=== PATIENT | female | born 1985 | race Caucasian/White ===

== ENCOUNTER 2020-04-05 22:57 | Emergency (ER) | payer MEDICAID, SELFPAY ==
[2020-04-05 23:01] VITALS: BP 110/78; PULSE 61; RESP 16; TEMP 36.1; O2SAT 100; BMI 19.5
[2020-04-05 23:24] VITALS: BP 112/71; PULSE 54; RESP 18; TEMP 36.4
--- NOTE | 2020-04-05 23:42 | ED_ITS ---
HPI - Dental/Oral General Chief complaint: Dental/Oral Stated complaint: DENTAL PAIN Time Seen by Provider: 04/05/20 23:35 Source: patient Mode of arrival: ambulatory Limitations: no limitations History of Present Illness HPI Narrative: 34-year-old female without significant past medical history presents today with dental pain. She reports that she has 9/10 pain located in her left lower jaw. She reports that she fractured tooth about 2 weeks ago. She has been taking Aleve, acetaminophen with no relief in her pain. She states that eating makes the pain worse. She states that The pain is stabbing in natu re. The pain does not radiate. she denies any fevers or chills. She denies any swollen lymph nodes. She denies any difficulty swallowing or throat swelling. She denies any other systemic complaints. She has called her dentist, she will be seen on April 19. Teeth map: 1. Fractured tooth Related Data Previous Rx's Medication Instructions Recorded oxycodone-acetaminophen [Percocet] 1 tab PO Q6H PRN 3 Days #12 tab 04/05/20 penicillin V potassium 500 mg PO QID 7 Days #28 tab 04/05/20 Allergies Allergy/AdvReac Type Severity Reaction Status Date / Time No Known Allergies Allergy Unverified 03/22/20 18:27 Review of Systems Review of Systems: Yes all other systems are reviewed and are negative Constitutional: Constitutional: Denies chills, Denies fever(s) and Denies weakness Eyes: Eyes: Denies blurry vision, Denies change in vision and Denies itchy eyes ENT: Denies dry mouth, Denies epistaxis and Denies neck pain Cardiovascular: Cardiovascular: Denies chest pain, Denies Epigastric Pain, Denies palpitations and Denies dyspnea Respiratory: Respiratory: Denies cough and Denies dyspnea Gastrointestinal: Gastrointestinal: Denies constipation, Denies diarrhea, Denies nausea and Denies vomiting Genitourinary: Genitourinary: Denies urinary frequency and Denies urinary urgency Musculoskeletal: Musculoskeletal: Denies back pain, Denies arthralgias, Denies neck pain, Denies numbness and Denies tingling Integumentary/Breasts: Skin/Breast: Denies lesions and Denies rash Neurologic: Denies confusion, Denies numbness, Denies tingling and Denies weakness Psychiatric: Psychiatric: Denies anxiety, Denies confusion and Denies depression Endocrine: Endocrine: Denies polydipsia and Denies palpitations Hematologic/Lymphatic: Hematologic/Lymphatic: Denies easy bleeding and Denies easy bruising Allergic/Immunologic: Allergic/Immunologic: Denies urticaria and Denies itchy eyes [facility] Past Medical History [facility] Narrative: noncontributory Source: old records reviewed Medical History No known health problems Social History Social History Advance Directives: No Advance Directives Information Provided: No Physical Exam Vital Signs and I&O and Narrative: Vital Signs and I&O: Vital Signs Temp 97.6 F 04/05/20 23:24 Pulse 54 04/05/20 23:24 Resp 18 04/05/20 23:24 BP 112/71 04/05/20 23:24 Pulse Ox 100 04/05/20 23:01 Intake & Output 04/05/20 04/05/20 04/06/20 06:59 18:59 06:59 Weight 51.71 kg Body Mass Index 19.5 Const: General: cooperative, no acute distress, alert and awake; No confusion Orientation/consciousness: oriented to place, oriented to time, patient oriented x3 and No confusion HENMT: Head: Yes normal to inspection, Yes normocephalic and Yes atraumatic Ears: hearing grossly normal bilaterally and external ears normal General nose exam: Normal external nose present Mouth: Normal oral and palatal mucosa present Teeth and gingiva: abnormal dentition Teeth image: 1. tooth 18 has a fracture through it. There is exposed dentin. Throat: Yes posterior oropharynx normal and Yes tonsils normal Eyes: General: appearance normal, both eyes and all related structures Conjunctivae: conjunctivae normal Sclerae: sclerae normal Corneas: corneas normal EOM: EOMs intact bilaterally Neck: Neck: Yes normal visual inspection, Yes full ROM, Yes no lymphadenopathy, Yes trachea midline and Yes supple Resp: Effort & Inspection: normal respiratory effort, no tracheal deviation, no use of accessory muscles and No prolonged expiratory phase Auscultation: clear to auscultation bilaterally Cardio: Jugular venous distension: no JVD Palpation: normal PMI Rate: regular rate Rhythm: regular rhythm Heart sounds: S1 normal heart sound present and S2 normal heart sound present GI: Inspection: Yes normal to inspection Palpation (GI): Soft to palpation and nontender Skin: General skin exam: no rashes or lesions noted Neuro: General: oriented to place, oriented to time, patient oriented x3 and No confusion Extrem: General: Yes normal to inspection and Yes full ROM Psych: Appearance: grossly normal Mental Status: mental status grossly normal MDM - Dental/Oral MDM Narrative Medical decision making narrative: 34-year-old female presents today with a fractured tooth at tooth 18. That she has been dealing with for about 2 weeks. Her pain is not relieved with acetaminophen and Tylenol. There is an obvious fracture of tooth 18, With palpation of the apical surface of this. Differential includes fracture tooth versus dental abscess. There are no signs of deep space soft tissue infection. There are no signs of retropharyngeal abscess, peritonsillar abscess. She was given oxycodone given that she has not had relief with NSAIDs and acetaminophen at home. She is placed on penicillin for possible abscess. The patient was provided with discharge instructions and return precautions which she acknowledged. Differential Diagnosis Differential diagnosis: Likely dental caries, dental abscess and fracture of tooth Medical Records Attestation: I reviewed the patient's medical records. Lab Data Attestation: I reviewed the patient's lab results. Discharge Plan Discharge Clinical Impression: Fracture of tooth Qualifiers: Encounter type: initial encounter Fracture type: closed Qualified Code(s): S02.5XXA - Fracture of tooth (traumatic), initial encounter for closed fracture Patient Disposition: Home, Self-Care Instructions: Toothache (ED) Additional Instructions: Use 600 mg of ibuprofen every 8 hours for your pain, and the oxycodone- acetaminophen for breakthrough pain only. Do not drive if taking the oxycodone- acetaminophen. Take the antibiotic as prescribed. Please call your dentist tomorrow to see if you can get an earlier appointment. If you develop any new or concerning symptoms please return to the emergency department. Prescriptions: New oxycodone-acetaminophen [Percocet] 5-325 mg tablet 1 tab PO Q6H PRN (Reason: pain) 3 Days Qty: 12 RF: 0 penicillin V potassium 500 mg tablet 500 mg PO QID 7 Days Qty: 28 RF: 0
[2020-04-05] MEDS: oxyCODONE HCl Immed Release 5 MG TABLET PO (23:58)
[2020-04-05] MEDS: Penicillin V Potassium 250 MG TABLET 500 MG PO (23:59)
== END 2020-04-06 00:09 | disposition home or self-care (01) ==
LOC: HO.ED 23:50
PROVIDERS: Emergency Provider Emergency Medicine; PCP Family Medicine
DX: S02.5XXA Fracture of tooth (traumatic), initial encounter for closed fracture (principal); X58.XXXA Exposure to other specified factors, initial encounter; Y93.9 Activity, unspecified; Y92.9 Unspecified place or not applicable; Y99.9 Unspecified external cause status
CPT/HCPCS: 99283

== ENCOUNTER 2020-04-22 18:46 | Emergency (ER) | payer MEDICAID, SELFPAY ==
[2020-04-22 19:24] VITALS: BP 98/41; PULSE 71; RESP 16; TEMP 36.9; O2SAT 100; BMI 19.0
[2020-04-22] MEDS: oxyCODONE HCl Immed Release 5 MG TABLET PO (19:53)
--- NOTE | 2020-04-22 19:57 | ED_ITS ---
HPI - Dental/Oral General Chief complaint: Dental/Oral <SHAWNA Barriga Last Filed: 04/22/20 20:24> Stated complaint: Dental Pain <SHAWNA Barriga Last Filed: 04/22/20 20:24> Time Seen by Provider: 04/22/20 19:22 <SHAWNA Barriga Last Filed: 04/22/20 20:24> Source: patient <SHAWNA Barriga Last Filed: 04/22/20 20:24> Mode of arrival: ambulatory <SHAWNA Barriga Last Filed: 04/22/20 20:24> History of Present Illness HPI Narrative: 35-year-old female presenting to ED complaining of left lower dental pain times a few days due to broken tooth. Admits was recently evaluated in the ED for similar symptoms, prescribed antibiotic and pain medication with improvement in symptoms. Reports pain radiates to left ear /jaw. Denies fever, chills, drainage from ear, hearing, oral swelling, inability to eat/tolerate p.o. <SHAWNA Barriga Last Filed: 04/22/20 20:24> Related Data Home medications: Previous Rx's Medication Instructions Recorded oxycodone-acetaminophen [Percocet] 1 tab PO Q6H PRN 3 Days #12 tab 04/05/20 penicillin V potassium 500 mg PO QID 7 Days #28 tab 04/05/20 oxycodone-acetaminophen [Percocet] 1 tab PO Q8H PRN 3 Days #10 tab 04/06/20 acetaminophen-codeine 1 tab PO Q8H PRN 3 Days #9 tab 04/22/20 <SHAWNA Barriga Last Filed: 04/22/20 20:24> Allergies/adverse reactions: Allergies Allergy/AdvReac Type Severity Reaction Status Date / Time No Known Allergies Allergy Unverified 03/22/20 18:27 <SHAWNA Barriga Last Filed: 04/22/20 20:24> Review of Systems Review of Systems: Constitutional: No Weight loss, No Fever, No Chills ENT/Mouth: +dental pain, +L Ear Pain, No Nasal Congestion, No Sinus Pain, No Hoarseness, No sore throat, No Swallowing Difficulty Skin: No Skin Lesions, No rash <SHAWNA Barriga Last Filed: 04/22/20 20:24> Yes all other systems are reviewed and are negative <SHAWNA Barriga - Last Filed: 04/22/20 20:24> [facility] Past Medical History Attestation statement: The following information was validated with the patient. <SHAWNA Barriga - Last Filed: 04/22/20 20:24> Medical History: Medical History No known health problems <SHAWNA Barriga - Last Filed: 04/22/20 20:24> Social History Social History: Social History Advance Directives: No <SHAWNA Barriga - Last Filed: 04/22/20 20:24> Physical Exam Vital Signs: Vital Signs: Vital Signs Temp Pulse Resp BP Pulse Ox 04/22/20 20:20 57 16 101/67 04/22/20 19:24 98.5 F 71 16 98/41 L 100 Body Mass Index 19.0 <SHAWNA Barriga - Last Filed: 04/22/20 20:24> Vital Signs: Vital Signs Temp Pulse Resp BP Pulse Ox 04/22/20 20:20 57 16 101/67 04/22/20 19:24 98.5 F 71 16 98/41 L 100 Body Mass Index 19.0 <Cheryl Nunes MD - Last Filed: 04/23/20 02:16> Const: General: cooperative and healthy appearing <SHAWNA Barriga - Last Filed: 04/22/20 20:24> Orientation/consciousness: patient oriented x3 <SHAWNA Barriga - Last Filed: 04/22/20 20:24> Limitations: no limitations <SHAWNA Barriga - Last Filed: 04/22/20 20:24> HENMT: Other: diffuse dental caries. L lower molar broken, no visible pulp, no surrounding erythema /inflammation, fluctuance or induration. <SHAWNA Barriga - Last Filed: 04/22/20 20:24> Head: Yes normal to inspection <SHAWNA Barriga - Last Filed: 04/22/20 20:24> Ears: hearing grossly normal bilaterally, external ears normal and TM's normal bilaterally <SHAWNA Barriga - Last Filed: 04/22/20 20:24> General nose exam: Normal external nose present and Normal nares present <SHAWNA Barriga - Last Filed: 04/22/20 20:24> Face and sinus: Yes normal facial exam <SHAWNA Barriga - Last Filed: 04/22/20 20:24> Mouth: Normal oral and palatal mucosa present <SHAWNA Barriga - Last Filed : 04/22/20 20:24> Teeth and gingiva: caries <Keila Ruiz [place] - Last Filed: 04/22/20 20:24> Throat: Yes uvula midline <SHAWNA Barriga - Last Filed: 04/22/20 20:24> Eyes: General: appearance normal, both eyes and all related structures <SHAWNA Barriga - Last Filed: 04/22/20 20:24> EOM: EOMs intact bilaterally <SHAWNA Barriga - Last Filed: 04/22/20 20:24> Neck: Neck: Yes normal visual inspection, Yes no lymphadenopathy and Yes no meningeal signs <SHAWNA Barriga - Last Filed: 04/22/20 20:24> Resp: Effort & Inspection: normal respiratory effort <SHAWNA Barriga - Last Filed: 04/22/20 20:24> Cardio: Rate: regular rate <SHAWNA Barriga - Last Filed: 04/22/20 20:24> Skin: Rashes: no rashes <SHAWNA Barriga - Last Filed: 04/22/20 20:24> Wounds: no wounds <Keila Ruiz [place] - Last Filed: 04/22/20 20:24> Neuro: General: patient oriented x3 and no meningeal signs <SHAWNA Barriga - Last Filed: 04/22/20 20:24> Gait exam (Neuro): Normal gait present <SHAWNA Barriga - Last Filed: 04/22/20 20:24> Extrem: General: Yes normal to inspection <SHAWNA Barriga - Last Filed: 04/22/20 20:24> MDM - Dental/Oral MDM Narrative Medical decision making narrative: Likely acute on chronic dental pain. Low concern for dental abscess/ intraoral infection at this time. Exam not consistent with [employer] <SHAWNA Barriga Last Filed: 04/22/20 20:24> Differential Diagnosis Differential diagnosis: Likely dental caries, toothache and fracture of tooth <SHAWNA Barriga Last Filed: 04/22/20 20:24> Discharge Plan Discharge Clinical Impression: Toothache, Dental caries <SHAWNA Barriga Last Filed: 04/22/20 20:24> Patient Disposition: Home, Self-Care <SHAWNA Barriga Last Filed: 04/22/20 20:24> Instructions: Mouth Care (ED) <SHAWNA Barriga Last Filed: 04/22/20 20:24> Additional Instructions: Tylenol No. 3 is an opiate pain medication, take only when pain is severe for the next 3 days In addition you should be taking ibuprofen at home Apply heat or ice to area You need to follow-up with a dentist <SHAWNA Barriga Last Filed: 04/22/20 20:24> Prescriptions: New acetaminophen-codeine 300-30 mg tablet 1 tab PO Q8H PRN (Reason: pain) 3 Days Qty: 9 RF: 0 No Action oxycodone-acetaminophen [Percocet] 5-325 mg tablet 1 tab PO Q6H PRN (Reason: pain) 3 Days Qty: 12 RF: 0 penicillin V potassium 500 mg tablet 500 mg PO QID 7 Days Qty: 28 RF: 0 oxycodone-acetaminophen [Percocet] 5-325 mg tablet 1 tab PO Q8H PRN (Reason: Acute pain) 3 Days Qty: 10 RF: 0 <SHAWNA Barriga Last Filed: 04/22/20 20:24> Referrals: Arik Robles DMD [Dentist] - 2 days Hamlet Simpson DMD [Physician] - 2 days <SHAWNA Barriga Last Filed: 04/22/20 20:24> Interventions: ED Discharge Assessment Last Done: 04/22/20 20:24 <SHAWNA Barriga Last Filed: 04/22/20 20:24> Discharge Date/Time: 04/22/20 20:30 <SHAWNA Barriga Last Filed: 04/22/20 20:24> Print Language: German <SHAWNA Barriga - Last Filed: 04/22/20 20:24>
[2020-04-22 20:20] VITALS: BP 101/67; PULSE 57; RESP 16
== END 2020-04-22 20:30 | disposition home or self-care (01) ==
PROVIDERS: Emergency Provider Emergency Medicine; PCP Family Medicine
DX: K02.9 Dental caries, unspecified (principal); K08.89 Other specified disorders of teeth and supporting structures
CPT/HCPCS: 99283; 99284

== ENCOUNTER 2020-10-09 23:08 | Emergency (ER) | payer MEDICAID, SELFPAY ==
[2020-10-09 23:24] VITALS: BP 97/61; PULSE 66; RESP 16; TEMP 36.8; O2SAT 100; BMI 19.8
[2020-10-09 23:53] VITALS: BP 98/60; PULSE 60; RESP 16; TEMP 36.9; O2SAT 97
--- NOTE | 2020-10-10 | ED_ITS ---
HPI - Anxiety General Chief Complaint: Anxiety Stated Complaint: NAUSEA/VOMITING Time Seen by Provider: 10/10/20 00:00 Source: patient Mode of arrival: ambulatory Limitations: no limitations History of Present Illness HPI narrative: Patient had 3- 4 times diarrhea yesterday and today she been feeling nauseated with slight epigastric pain feel little anxious otherwise feels comfortable complaint: anxiety Related Data Previous Rx's Medication Instructions Recorded oxycodone-acetaminophen [Percocet] 1 tab PO Q6H PRN 3 Days #12 tab 04/05/20 penicillin V potassium 500 mg PO QID 7 Days #28 tab 04/05/20 oxycodone-acetaminophen [Percocet] 1 tab PO Q8H PRN 3 Days #10 tab 04/06/20 acetaminophen-codeine 1 tab PO Q8H PRN 3 Days #9 tab 04/22/20 ondansetron 4 mg PO Q6-8H PRN #7 tab 10/10/20 Allergies Allergy/AdvReac Type Severity Reaction Status Date / Time No Known Allergies Allergy Unverified 03/22/20 18:27 Review of Systems Review of Systems: Constitutional : No Weight loss, No Fever, No Chills ENT/Mouth : No sore throat, No Rhinorrhea Eyes: No Eye Pain, No Swelling Cardiovascular : No Chest Pain, no palpitations Respiratory : No Cough, No Sputum, no shortness of breath Gastrointestinal :+ Nausea, No Vomiting, No Diarrhea, No abdominal Pain, no black stools Genitourinary : No Dysuria, No Urinary Frequency Musculoskeletal : No joint pain, No Myalgias, No Joint Swelling Skin : No Skin Lesions, No rash Neuro : No Weakness, No Numbness, No Dizziness, No Headache Psych : + Anxiety, No Depression Heme/Lymph: No Bruising, No Lymphadenopathy Endocrine : No Polyuria, No Polydipsia All other systems reviewed and are negative [facility] Past Medical History Medical History No known health problems Social History Social History Smoking Status: Light tobacco smoker Use of substances other than those prescribed or required for medical reasons: No Advance Directives: No Advance Directives Information Provided: No Physical Exam Vital Signs: Vital Signs: Last Vital Signs Temp 98.4 F 10/09/20 23:53 Pulse 60 10/09/20 23:53 Resp 16 10/09/20 23:53 BP 98/60 10/09/20 23:53 Pulse Ox 97 10/09/20 23:53 Body Mass Index 19.8 Appearance: Alert. Oriented X3. No acute distress. Eyes: Pupils equal, round and reactive to light. ENT: Pharynx normal. Neck: Normal inspection. Neck supple. CVS: Normal heart rate and rhythm. Pulses normal. Respiratory: No respiratory distress. Breath sounds normal. Abdomen: Soft mild epigastric tenderness no right upper quadrant tenderness. Bowel sounds are present, no mass palpable, no CVA tenderness Skin: Skin warm and dry. Normal skin color. Normal skin turgor. Extremities: No lower extremity edema. Neuro: Oriented X 3. No motor deficit. No sensory deficit. MDM - Anxiety MDM Narrative Medical decision making narrative: Patient with likely viral gastroenteritis had only nausea no vomiting today will give her Zofran urine is negative for any UTI or Lab Data Attestation: I reviewed the patient's lab results. Labs: Lab Results 10/10/20 10/10/20 Range/Units 00:31 00:31 Urine Color YELLOW Urine Appearance CLEAR Urine pH 6.0 (5.0-8.0) Ur Specific [place] 1.010 (1.005-1.025) Urine Protein NEG (NEG-TRACE) MG/DL Urine Glucose (UA) NEG (NEG) MG/DL Urine Ketones NEG (NEG) MG/DL Urine Blood NEG (NEG) Urine Nitrite NEG (NEG) Ur Leukocyte Esterase NEG (NEG) Urine Test NEGATIVE (NEGATIVE) Discharge Plan Discharge Clinical Impression: Nausea & vomiting Qualifiers: Vomiting type: unspecified Vomiting Intractability: non-intractable Qualified Code(s): R11.2 - Nausea with vomiting, unspecified Patient Disposition: Home, Self-Care Instructions: Gastroenteritis (ED) Additional Instructions: Drink plenty of fluids Takes medicine for nausea as advised. Follow-up follow with PCP Prescriptions: New ondansetron 4 mg tablet,disintegrating 4 mg PO Q6-8H PRN (Reason: nausea and vomiting) Qty: 7 RF: 0 No Action oxycodone-acetaminophen [Percocet] 5-325 mg tablet 1 tab PO Q6H PRN (Reason: pain) 3 Days Qty: 12 RF: 0 penicillin V potassium 500 mg tablet 500 mg PO QID 7 Days Qty: 28 RF: 0 oxycodone-acetaminophen [Percocet] 5-325 mg tablet 1 tab PO Q8H PRN (Reason: Acute pain) 3 Days Qty: 10 RF: 0 acetaminophen-codeine 300-30 mg tablet 1 tab PO Q8H PRN (Reason: pain) 3 Days Qty: 9 RF: 0
[2020-10-10 00:40] LABS: Glucose Urine UA NEG (NEG); Leukocyte Esterase Urine NEG (NEG); Nitrite Urine NEG (NEG); Urine Blood NEG (NEG); Urine Ketones NEG (NEG); Urine Protein NEG (NEG-TRACE)
[2020-10-10 00:41] LABS: Appearance Urine CLEAR; Color Urine YELLOW; UPreg QC Valid YES; Urine Pregnancy NEGATIVE (NEGATIVE)
== END 2020-10-10 01:05 | disposition home or self-care (01) ==
PROVIDERS: Emergency Provider Internal Medicine; PCP Family Medicine
DX: R11.2 Nausea with vomiting, unspecified (principal); R10.13 Epigastric pain; F17.200 Nicotine dependence, unspecified, uncomplicated; Z71.6 Tobacco abuse counseling; Z79.899 Other long term (current) drug therapy
CPT/HCPCS: 81003; 81025; 99283; 99284

== ENCOUNTER 2021-02-24 07:42 | Emergency (ER) | payer MEDICAID, SELFPAY ==
--- NOTE | ~2021-02-24 | CT_ITS ---
EXAMINATION: CT FACIAL BONES WITHOUT CONTRAST CLINICAL INFORMATION: Injury to eye COMPARISON: None TECHNIQUE: Multidetector CT scan of the facial bones with multiplanar reconstructions This CT examination was performed using dose optimization techniques as appropriate, variously including the following: *Automated exposure control *Adjustment of mA and/or kV according to patient size (this includes techniques or standardized protocols for targeted exams where dose is matched to indication/reason for exam; i.e. extremities or head) *Use of iterative reconstruction technique DLP: 20 9 mGy-cm FINDINGS: Soft tissue swelling overlying the left orbit with mild preseptal swelling. No lens dislocation or orbital disruption. No overlying bony abnormality. There is no acute maxillofacial fracture. The pterygoid plates are intact. The zygomatic arches are intact. The lamina papyracea are intact. The orbital rims are intact. The paranasal sinuses are notable for polypoid or retention cyst right maxillary sinus. No air-fluid levels are seen. There is no significant deviation of the nasal septum. The ostiomeatal complexes are clear. The lamina papyracea are intact. The ethmoid roofs are symmetric. The carotid canals are normally covered by bone. No maxillary periapical disease is seen. The mastoid air cells and visualized middle ear cavities are well-aerated. The orbits are normal. The TMJs are unremarkable. The imaged portions of the brain demonstrate no acute abnormality. CT/CT facial bones wo con IMPRESSION: No acute intracranial process or discrete facial bone fracture. No orbital floor or medial orbital wall fracture.
[2021-02-24 07:51] VITALS: BP 124/81; PULSE 70; RESP 14; TEMP 36.1; O2SAT 100; BMI 17.4
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
--- NOTE | 2021-02-24 08:11 | PC.NURSE ---
PT A/O X3 NO SOB/BEBE NOTED, L EYE SWOLLEN PURPLE DISCOLORATITON NOTED. SPEAKS IN FULL SENTENCES. AWARE.
== END 2021-02-24 09:48 | disposition home or self-care (01) ==
PROVIDERS: Emergency Provider Emergency Medicine; PCP Family Medicine
DX: S00.12XA Contusion of left eyelid and periocular area, initial encounter (principal); G44.309 Post-traumatic headache, unspecified, not intractable; Y04.8XXA Assault by other bodily force, initial encounter; Y93.9 Activity, unspecified; Y92.9 Unspecified place or not applicable; Y99.9 Unspecified external cause status; F17.200 Nicotine dependence, unspecified, uncomplicated; Z71.6 Tobacco abuse counseling; Z79.899 Other long term (current) drug therapy
CPT/HCPCS: 70486; 99283

== ENCOUNTER 2022-05-30 10:55 | Emergency (ER) | payer MEDICAID, SELFPAY ==
[2022-05-30 11:31] VITALS: BP 92/63; PULSE 89; RESP 18; TEMP 37.3; O2SAT 95; BMI 19.7
--- NOTE | 2022-05-30 11:31 | ED_ITS ---
HPI - URI/Sore Throat General Chief Complaint: Headache <Shameka Diamond CNP - Last Filed: 05/30/22 11:36> Stated Complaint: body aches, fever <Shameka Diamond CNP - Last Filed: 05/30/22 11:36> Time Seen by Provider: 05/30/22 11:54 <Shameka Diamond CNP - Last Filed: 05/30/22 11:36> Source: patient <Amanda Doshi NP - Last Filed: 05/30/22 16:08> Mode of arrival: ambulatory <LISA Paige Last Filed: 05/30/22 16:08> Limitations: no limitations <Amanda Doshi NP - Last Filed: 05/30/22 16:08> History of Present Illness HPI Narrative: Stephany is a 37 yo female with a PMHx of depression and anxiety who presents to the emergency department with a CC of body aches, fatigue, and fever since yesterday afternoon. She says that she is having body aches that are sharp in quality and rates them as a 8/10. She did not take her temperature at home but says that she feels hot. She additionally endorses feeling dizzy like she is off-balance, and has a headache that is concentrated mostly around the temples, with denial of photophobia or phonophobia. She also says that she has some nausea that is made better with drinking coffee. She denies a sore throat, nasal congestion, cough, SOB, chest pain, vomiting, diarrhea, constipation, burning when urinating or any blood. She denies abnormal vaginal discharge, pain, or bleeding. She says that she is not vaccinated for COVID or flu and indicates that her son had similar symptoms recently. <LISA Paige Last Filed: 05/30/22 16:08> Onset (ago): day(s) (1) <Amanda Doshi NP - Last Filed: 05/30/22 16:08> Consistency: constant <LISA Paige Last Filed: 05/30/22 16:08> Severity: moderate <Amanda Doshi NP - Last Filed: 05/30/22 16:08> Exacerbating factors: nothing <Amanda Doshi NP - Last Filed: 05/30/22 16:08> Context: sick contacts (son) <Amanda Doshi NP - Last Filed: 05/30/22 16:08> Associated symptoms: fever, chills, myalgias and headache <Amanda Doshi NP - Last Filed: 05/30/22 16:08> Treatments prior to arrival: none <Amanda Doshi NP - Last Filed: 05/30/22 16:08> Related Data Home Medications: Previous Rx's Medication Instructions Recorded oxycodone-acetaminophen 5 mg-325 1 tab PO Q6H PRN pain 3 days #12 04/05/20 mg tablet (Percocet) tabs penicillin V potassium 500 mg 500 mg PO QID 7 days #28 tabs 04/05/20 tablet oxycodone-acetaminophen 5 mg-325 1 tab PO Q8H PRN Acute pain 3 days 04/06/20 mg tablet (Percocet) #10 tabs acetaminophen 300 mg-codeine 30 mg 1 tab PO Q8H PRN pain 3 days #9 04/22/20 tablet tabs ondansetron 4 mg disintegrating 4 mg PO Q6-8H PRN nausea and 10/10/20 tablet vomiting #7 tabs acetaminophen 325 mg tablet 650 mg PO Q4H PRN pain #20 tabs 05/30/22 (Tylenol) ibuprofen 400 mg tablet 400 mg PO Q6H PRN pain #20 tabs 05/30/22 <Shameka Diamond CNP - Last Filed: 05/30/22 11:36> Allergies/Adverse Reactions: Allergies Allergy/AdvReac Type Severity Reaction Status Date / Time No Known Allergies Allergy Unverified 03/22/20 18:27 <Shameka Diamond CNP - Last Filed: 05/30/22 11:36> Review of Systems Review of Systems: Yes all other systems are reviewed and are negative <Amanda Doshi NP - Last Filed: 05/30/22 16:08> Constitutional: Constitutional: Reports no additional constitutional complaints, Reports body ache(s), Reports chills, Reports fever(s), Reports headache(s) and Denies weakness <Amanda Doshi NP - Last Filed: 05/30/22 16:08> Eyes: Eyes: Reports no additional eye complaints and Denies change in vision <Amanda Doshi SENIOR OPERATIONS MANAGER - Last Filed: 05/30/22 16:08> ENT: Reports system reviewed and no additional complaints, except as documented, Reports dizziness, Reports headache(s), Denies nasal congestion, Denies nasal discharge and Denies neck pain <Amanda Doshi SENIOR OPERATIONS MANAGER - Last Filed: 05/30/22 16:08> Cardiovascular: Cardiovascular: Reports no additional cardiovascular complaints, Denies chest pain, Denies leg edema and Denies dyspnea <Amanda Doshi NP - Last Filed: 05/30/22 16:08> Respiratory: Respiratory: Reports no additional respiratory complaints, Denies cough and Denies dyspnea <Amanda Doshi NP - Last Filed: 05/30/22 16:08> Gastrointestinal: Gastrointestinal: Reports no additional gastrointestinal complaints, Denies abdominal pain, Denies diarrhea, Denies nausea and Denies vomiting <Amanda Doshi SENIOR OPERATIONS MANAGER - Last Filed: 05/30/22 16:08> Genitourinary: Genitourinary: Reports no additional female genitourinary complaints and Denies urinary incontinence <Amanda Doshi SENIOR OPERATIONS MANAGER - Last Filed: 05/30/22 16:08> Musculoskeletal: Musculoskeletal: Reports no additional musculoskeletal complaints, Denies back pain, Denies arthralgias, Denies joint swelling, Denies neck pain, Denies numbness and Denies tingling <Amanda Doshi NP - Last Filed: 05/30/22 16:08> Integumentary/Breasts: Skin/Breast: Reports system reviewed and no additional complaints, except as docu and Denies rash <Amanda Doshi NP - Last Filed: 05/30/22 16:08> Neurologic: Reports system reviewed and no additional complaints, except as documented, Denies Abnormal speech present, Reports dizziness, Reports headache(s), Denies numbness, Denies tingling and Denies weakness <Amanda Doshi NP - Last Filed: 05/30/22 16:08> [facility] Past Medical History Attestation statement: The following information was validated with the patient. <Amanda venegas NP - Last Filed: 05/30/22 16:08> [facility] Narrative: PMHx: Depression and anxiety SHx: 3 C-sections Social: 1-2 cigarettes a day <Amanda Doshi NP - Last Filed: 05/30/22 16:08> Source: old records reviewed and nursing notes reviewed <Amanda Doshi NP - Last Filed: 05/30/22 16:08> Medical History: Medical History No known health problems <Shameka Diamond CNP - Last Filed: 05/30/22 11:36> Social History Social History: Social History Alcohol intake: never Patient Tobacco Use Status: Current someday Tobacco user Advance Directives: No <Shameka Diamond CNP - Last Filed: 05/30/22 11:36> Physical Exam Vital Signs: Vital Signs: Last Vital Signs Temp 99.1 F 05/30/22 11:31 Pulse 82 05/30/22 12:25 Resp 16 05/30/22 12:25 BP 97/49 L 05/30/22 12:25 Pulse Ox 95 05/30/22 11:31 O2 Del Method 05/30/22 11:31 BMI result Body Mass Index 19.7 <Shameka Diamond CNP - Last Filed: 05/30/22 11:36> Vital Signs: Last Vital Signs Temp 99.1 F 05/30/22 11:31 Pulse 82 05/30/22 12:25 Resp 16 05/30/22 12:25 BP 97/49 L 05/30/22 12:25 Pulse Ox 95 05/30/22 11:31 O2 Del Method 05/30/22 11:31 BMI result Body Mass Index 19.7 <Amanda Doshi NP - Last Filed: 05/30/22 16:08> Const: General: cooperative, healthy appearing, comfortable and no acute distress <Amanda Doshi NP - Last Filed: 05/30/22 16:08> Orientation/consciousness: patient oriented x3 <Amanda Doshi NP - Last Filed: 05/30/22 16:08> Limitations: no limitations <Amanda Doshi NP - Last Filed: 05/30/22 16:08> HEENT: Head: Yes normal to inspection <Amanda Doshi NP - Last Filed: 05/30/22 16:08> Ears: hearing grossly normal bilaterally and TM's normal bilaterally <Amanda Doshi NP - Last Filed: 05/30/22 16:08> General nose exam: Normal external nose present <Amanda Doshi NP - Last Filed: 05/30/22 16:08> Face and sinus: Yes normal facial exam <Amanda Doshi NP - Last Filed: 05/30/22 16:08> Mouth: Normal oral and palatal mucosa present <Amanda Doshi NP - Last Filed: 05/30/22 16:08> Throat: Yes posterior oropharynx normal, Yes tonsils normal and Yes uvula midline <Amanda Doshi NP - Last Filed: 05/30/22 16:08> Eyes: General: appearance normal, both eyes and all related structures <Amanda Doshi NP - Last Filed: 05/30/22 16:08> Pupils: Equal, round and reactive pupils present <Amanda Doshi NP - Last Filed: 05/30/22 16:08> Neck: Neck: Yes normal visual inspection, Yes full ROM, Yes no lymphadenopathy and Yes no meningeal signs <Amanda Doshi NP - Last Filed: 05/30/22 16:08> Chest: Chest palpation & inspection: normal inspection of the chest <Amanda Doshi NP - Last Filed: 05/30/22 16:08> Resp: Effort & Inspection: normal respiratory effort <Amanda Doshi NP - Last Filed: 05/30/22 16:08> Auscultation: clear to auscultation bilaterally <Amanda Doshi NP - Last Filed: 05/30/22 16:08> Cardio: Rate: regular rate <Amanda Doshi NP - Last Filed: 05/30/22 16:08> Rhythm: regular rhythm <Amanda Doshi NP - Last Filed: 05/30/22 16:08> Peripheral pulses: Peripheral pulses 2+ throughout <Amanda Doshi NP - Last Filed: 05/30/22 16:08> GI: Inspection: Yes normal to inspection <Amanda Doshi NP - Last Filed: 05/30/22 16:08> Palpation (GI): Soft to palpation and nontender <Amanda Doshi SENIOR OPERATIONS MANAGER - Last Filed: 05/30/22 16:08> Auscultation: normal bowel sounds <Amanda Doshi NP - Last Filed: 05/30/22 16:08> Back/Spine/Pelvis: Thoracic/Lumbar Spine: thoracic and lumbar spine normal to inspection <Amanda Doshi NP - Last Filed: 05/30/22 16:08> Skin: General skin exam: no rashes or lesions noted <Amanda Doshi NP - Last Filed: 05/30/22 16:08> Neuro: General: patient oriented x3, no meningeal signs, no focal motor deficits and normal sensation to monofilament <Amanda Doshi SENIOR OPERATIONS MANAGER - Last Filed: 05/30/22 16:08> Cranial nerves: Yes Equal, round and reactive pupils present <Amanda Doshi NP - Last Filed: 05/30/22 16:08> Cognition (Neuro): normal cognition <Amanda Doshi NP - Last Filed: 05/30/22 16:08> Speech: No Abnormal speech present <Amanda Doshi NP - Last Filed: 05/30/22 16:08> Gait exam (Neuro): Normal gait present <Amanda Doshi NP - Last Filed: 05/30/22 16:08> Motor exam (neuro): 5/5 motor strength present throughout <Amanda Doshi NP - Last Filed: 05/30/22 16:08> Extrem: General: Yes normal to inspection, Yes no pedal edema and Yes no calf tenderness <Amanda Doshi NP - Last Filed: 05/30/22 16:08> Course Course Course Narrative: RME: Patient is a 37-year-old female presents emergency department for evaluation body aches fever, nausea nasal congestion. Symptom onset last night. Reports her son is ill with similar symptoms. She is not tried any [id number] medications. PE: No respiratory distress, LSCTA, sinus tenderness upon palpation Plan: COVID-19 testing, influenza testing, acetaminophen for pain <Shameka Diamond CNP - Last Filed: 05/30/22 11:36> RME: Patient is a 37-year-old female presents emergency department for evaluation for body aches, fever, nausea, and headache. Symptom onset last night. Reports her son is ill with similar symptoms. She is not tried any ov [id number] medications. PE is unremarkable. COVID and flu are negative. Given her history and PE I advised supportive care for her symptoms including Tylenol 325 mg and Ibuprofen 400 mg as needed. She likely has a URI and will start to feel better in a few days. She should f/u with her PCP next week. PE: No respiratory distress, LSCTA Plan: COVID-19 testing, influenza testing, acetaminophen for pain <Amanda Doshi NP - Last Filed: 05/30/22 16:08> Reevaluation(s) Reevaluation #1: -COVID and flu testing negative. Likely viral syndrome. Reviewed supportive care at home. reviewed worrisome signs/symptoms with patient and when to seek additional care. Comfortable with discharge home. <Amanda Doshi NP - Last Filed: 05/30/22 16:08> Medications Administered Discontinued Medications Generic Name Dose Route Start Last Admin Trade Name Freq PRN Reason Stop Dose Admin Acetaminophen 650 mg 05/30/22 11:34 05/30/22 11:38 Acetaminophen 325 Mg Tablet PO 05/30/22 11:35 650 mg ONCE ONE Administration <Shameka Diamond CNP - Last Filed: 05/30/22 11:36> Medications Administered Discontinued Medications Generic Name Dose Route Start Last Admin Trade Name Freq PRN Reason Stop Dose Admin Acetaminophen 650 mg 05/30/22 11:34 05/30/22 11:38 Acetaminophen 325 Mg Tablet PO 05/30/22 11:35 650 mg ONCE ONE Administration <Amanda Doshi NP - Last Filed: 05/30/22 16:08> MDM - URI/Sore Throat MDM Narrative Medical decision making narrative: considered PE, PNA, viral syndrome, meningitis less likely PE with PERC 0 Less likely meningitis with no nuchal rigidity, meningeal sigsn, normal neuro exam. <Amanda Doshi NP - Last Filed: 05/30/22 16:08> Medical Records Attestation: I reviewed the patient's medical records. <Amanda Doshi NP - Last Filed: 05/30/22 16:08> Lab Data Attestation: I reviewed the patient's lab results. <Amanda Doshi NP - Last Filed: 05/30/22 16:08> Labs: Lab Results 05/30/22 05/30/22 Range/Units 11:34 11:34 COVID-19 ([facility]) Negative (Negative) COVID-19 Clin Com See Note Influenza Type A ([facility]) Negative (Negative) Influenza Type B (GENIA) Negative (Negative) Influenza A & B Note See Note <Shameka Diamond CNP - Last Filed: 05/30/22 11:36> Lab Results 05/30/22 05/30/22 Range/Units 11:34 11:34 COVID-19 ([facility]) Negative (Negative) COVID-19 Clin Com See Note Influenza Type A (GENIA) Negative (Negative) Influenza Type B (GENIA) Negative (Negative) Influenza A & B Note See Note <Amanda Doshi NP - Last Filed: 05/30/22 16:08> Discharge Plan Discharge Clinical Impression: Viral infection <Shameka Diamond CNP - Last Filed: 05/30/22 11:36> Patient Disposition: Home, Self-Care <Shameka Diamond CNP - Last Filed: 05/30/22 11:36> Additional Instructions: Testing for flu and covid are negative Increase fluids, rest Motrin or tylenol for pain or fever <Shameka Diamond CNP - Last Filed: 05/30/22 11:36> Prescriptions: New ibuprofen 400 mg tablet 400 mg PO Q6H PRN (Reason: pain) Qty: 20 0RF acetaminophen [Tylenol] 325 mg tablet 650 mg PO Q4H PRN (Reason: pain) Qty: 20 0RF No Action oxycodone-acetaminophen [Percocet] 5-325 mg tablet 1 tab PO Q6H PRN (Reason: pain) 3 Days Qty: 12 0RF penicillin V potassium 500 mg tablet 500 mg PO QID 7 Days Qty: 28 0RF oxycodone-acetaminophen [Percocet] 5-325 mg tablet 1 tab PO Q8H PRN (Reason: Acute pain) 3 Days Qty: 10 0RF ondansetron 4 mg tablet,disintegrating 4 mg PO Q6-8H PRN (Reason: nausea and vomiting) Qty: 7 0RF acetaminophen-codeine 300-30 mg tablet 1 tab PO Q8H PRN (Reason: pain) 3 Days Qty: 9 0RF <Shameka Diamond CNP - Last Filed: 05/30/22 11:36> Referrals: Selam Garcia DO [Primary Care Provider] - 1 week <Shameka Diamond CNP - Last Filed: 05/30/22 11:36> Stand Alone Forms: Work/School Release <Shameka Diamond CNP - Last Filed: 05/30/22 11:36> Interventions: ED Discharge Assessment Last Done: 05/30/22 12:50 <Shameka Diamond CNP - Last Filed: 05/30/22 11:36> Discharge Date/Time: 05/30/22 12:50 <Shameka Diamond CNP - Last Filed: 05/30/22 11:36>
[2022-05-30] MEDS: Acetaminophen 325 MG TABLET 650 MG PO (11:38)
[2022-05-30 11:57] LABS: COVID-19 Test Negative (Negative); IDNOW Serial# 55D5AD1C; IDNOW Serial# 9DB6401D; Influenza A Negative (Negative); Influenza B2 Negative (Negative)
[2022-05-30 12:25] VITALS: BP 97/49; PULSE 82; RESP 16
== END 2022-05-30 12:50 | disposition home or self-care (01) ==
PROVIDERS: Nurse Practitioner Family; Emergency Provider Emergency Medicine Emergency Medical Services; PCP Family Medicine
DX: B34.9 Viral infection, unspecified (principal); R50.9 Fever, unspecified; Z20.822 Contact with and (suspected) exposure to COVID-19; F17.200 Nicotine dependence, unspecified, uncomplicated
CPT/HCPCS: 87502; 87635; 99283

== ENCOUNTER 2022-12-10 10:55 | Emergency (ER) | payer MEDICAID, SELFPAY ==
[2022-12-10 12:04] VITALS: BP 109/60; PULSE 55; RESP 18; TEMP 36.7; O2SAT 100; BMI 19.1
--- NOTE | 2022-12-10 12:05 | ED.GENADULT ---
HPI - General Adult General Chief complaint: Neck Pain/Injury Stated complaint: L shoulder pain Time Seen by Provider: 12/10/22 13:08 Source: patient and RN notes reviewed Mode of arrival: ambulatory Limitations: no limitations History of Present Illness HPI narrative: This is a 37-year-old female, with no significant past medical history, who presents emergency department with complaints of left-sided neck and left upper back pain since this morning. 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 She states she worse late last night, and woke up this morning and felt as though she had pain and stiffness in her left upper back. She applied a lidocaine patch to her back which provided her with minimal relief. Denies history of similar symptoms in the past. Denies any fevers, chills, chest pain, shortness of breath, palpitations, abdominal pain, nausea, vomiting, or diarrhea. No other complaints or concerns at this time. MD complaint: left sided neck/upper back pain Onset (ago): day(s) Severity: moderate Quality: aching Pain Consistency: constant Relieving factors: immobilization Exacerbating factors: movement Associated symptoms: denies other symptoms Treatments prior to arrival: other ( Lidocaine patch) Related Data Previous Rx's Medication Instructions Recorded oxycodone-acetaminophen 5 mg-325 1 tab PO Q6H PRN pain 3 days #12 04/05/20 mg tablet (Percocet) tabs penicillin V potassium 500 mg 500 mg PO QID 7 days #28 tabs 04/05/20 tablet oxycodone-acetaminophen 5 mg-325 1 tab PO Q8H PRN Acute pain 3 days 04/06/20 mg tablet (Percocet) #10 tabs acetaminophen 300 mg-codeine 30 mg 1 tab PO Q8H PRN pain 3 days #9 04/22/20 tablet tabs ondansetron 4 mg disintegrating 4 mg PO Q6-8H PRN nausea and 10/10/20 tablet vomiting #7 tabs acetaminophen 325 mg tablet 650 mg PO Q4H PRN pain #20 tabs 05/30/22 (Tylenol) ibuprofen 400 mg tablet 400 mg PO Q6H PRN pain #20 tabs 05/30/22 cyclobenzaprine 5 mg tablet 10 mg PO TID PRN muscle spasm #14 12/10/22 tabs ibuprofen 600 mg tablet 600 mg PO Q6H PRN pain #45 tabs 12/10/22 Allergies Allergy/AdvReac Type Severity Reaction Status Date / Time No Known Allergies Allergy Unverified 03/22/20 18:27 Review of Systems Review of Systems: Constitutional: No Weight loss, No Fever, No Chills ENT/Mouth: No Ear Pain, No Nasal Congestion, No Sinus Pain, No Hoarseness, No sore throat, No Rhinorrhea, No Swallowing Difficulty Cardiovascular: No Chest Pain, No SOB Respiratory: No Cough, No Sputum, No Wheezing Gastrointestinal: No Nausea, No Vomiting, No Diarrhea, No Constipation, No Abdominal pain Genitourinary: No Dysuria, No Urinary Frequency, No Hematuria, No Urinary Incontinence/retention, No Urgency, No Flank Pain Musculoskeletal: No joint pain, No Myalgias, No Joint Swelling Skin: No Skin Lesions, No rash Neuro: No Weakness, No Numbness, No Paresthesias PMFSH Past Medical History Medical History No known health problems Social History Social History Alcohol intake: never Patient Tobacco Use Status: Current someday Tobacco user Advance Directives: No Advance Directives Information Provided: Yes Physical Exam ED Vital Signs: Vital Signs - 24 hr 12/10/22 12:04 Temperature 98.1 F Pulse Rate 55 Respiratory Rate 18 Blood Pressure 109/60 Pulse Oximetry 100 Oxygen Delivery Method Room Air BMI result Body Mass Index 19.1 General: Awake, alert, and oriented X3. No acute distress. HEENT: Normal inspection CVS: Normal heart rate and rhythm. Pulses normal. Respiratory: No respiratory distress Skin: Warm, dry, no rashes noted to exposed skin. Normal skin color. Normal skin turgor. Extremities: normal inspection MSK: Tenderness to palpation to the left upper trapezius, extending down into left mid back with palpable spasm. no cervical spine tenderness, no nuchal rigidity. full range of motion of the neck Neuro: Oriented X 3. No motor deficit. No sensory deficit. Course Course Course Narrative: RME- 37-year-old female presents for evaluation of left shoulder brain. Denies any trauma to the area. Vital signs stable. Medications Administered Discontinued Medications Generic Name Dose Route Start Last Admin Trade Name Freq PRN Reason Stop Dose Admin Ketorolac Tromethamine 30 mg 12/10/22 14:12 12/10/22 14:16 Ketorolac Tromethamine 30 Mg/Ml Vial IM 12/10/22 14:13 30 mg ONCE ONE Administration Medical Decision Making Medical Decision Making [facility] Narrative: This is a 37-year-old female, with no known past medical history, who presents emergency department for left upper back pain since this morning. Upon arrival, vital signs within normal limits, patient is nontoxic appearing and afebrile. Patient has no nuchal rigidity. Patient has tenderness to palpation along the left trapezius with palpable spasms noted. Patient medicated with Toradol IM. discharged on a prescription for muscle relaxers and ibuprofen. Given return precautions. Patient understands and agrees with plan. Patient stable for discharge Differential Diagnosis Differential Diagnoses: The differential diagnosis associated with the presentation includes left upper back pain, muscle strain, muscle spasm, muscle contusion Discharge Plan Discharge Clinical Impression: Muscle spasm, Trapezius muscle strain Patient Disposition: Home, Self-Care Instructions: Muscle Strain (DC), Muscle Spasm (ED) Additional Instructions: Please take ibuprofen and muscle relaxer as directed as needed for your symptoms. Please be aware that the muscle relaxer can cause drowsiness, do not drink alcohol or drive while taking this medication. Gentle heat and massage can help with your symptoms. If any new or worsening symptoms occur please return for re-evaluation. Prescriptions: New ibuprofen 600 mg tablet 600 mg PO Q6H PRN (Reason: pain) Qty: 45 0RF cyclobenzaprine 5 mg tablet 10 mg PO TID PRN (Reason: muscle spasm) Qty: 14 0RF No Action oxycodone-acetaminophen [Percocet] 5-325 mg tablet 1 tab PO Q6H PRN (Reason: pain) 3 Days Qty: 12 0RF penicillin V potassium 500 mg tablet 500 mg PO QID 7 Days Qty: 28 0RF oxycodone-acetaminophen [Percocet] 5-325 mg tablet 1 tab PO Q8H PRN (Reason: Acute pain) 3 Days Qty: 10 0RF ondansetron 4 mg tablet,disintegrating 4 mg PO Q6-8H PRN (Reason: nausea and vomiting) Qty: 7 0RF acetaminophen-codeine 300-30 mg tablet 1 tab PO Q8H PRN (Reason: pain) 3 Days Qty: 9 0RF ibuprofen 400 mg tablet 400 mg PO Q6H PRN (Reason: pain) Qty: 20 0RF acetaminophen [Tylenol] 325 mg tablet 650 mg PO Q4H PRN (Reason: pain) Qty: 20 0RF Stand Alone Forms: Work/School Release Discharge Date/Time: 12/10/22 14:52
[2022-12-10] MEDS: Ketorolac Tromethamine 30 MG/ML VIAL IM (14:16)
== END 2022-12-10 14:52 | disposition home or self-care (01) ==
PROVIDERS: Emergency Provider Internal Medicine; PCP Family Medicine
DX: M62.838 Other muscle spasm (principal); S46.812A Strain of other muscles, fascia and tendons at shoulder and upper arm level, left arm, initial encounter; X58.XXXA Exposure to other specified factors, initial encounter; Y93.9 Activity, unspecified; Y92.9 Unspecified place or not applicable; Y99.9 Unspecified external cause status
CPT/HCPCS: 96372; 99284; J1885

== ENCOUNTER 2023-12-18 11:42 | Outpatient (REF) | payer MEDICAID, SELFPAY ==
[2023-12-18 13:45] LABS: Hematocrit 35.4 % (37.0-47.0); Hemoglobin 11.3 g/dl (12.0-16.0); Mean Corpuscular HGB Conc 31.9 g/dl (31.0-35.0); Mean Corpuscular Hemoglobin 27.9 pg (27.0-33.0); Mean Corpuscular Volume 87.4 fL (80.0-98.0); Mean Platelet Volume 10.8 fL (9.4-12.3); Platelet Count 269 X10*3/uL (160-400); Red Blood Count 4.05 X10*6/uL (4.20-5.50); Red Cell Distribution Width 14.1 % (11.0-16.0); White Blood Count 6.9 X10*3/uL (4.8-10.8)
[2023-12-18 14:24] LABS: Estimated Average Glucose 103 mg/dL; Hemoglobin A1c % 5.2 % (<6.0)
[2023-12-18 14:39] LABS: Alanine Aminotransferase 44 U/L (0-31); Albumin Level 3.9 g/dL (3.5-5.0); Alkaline Phosphatase 77 U/L (39-117); Anion Gap 10 (12-20); Aspartate Amino Transferase 31 U/L (5-31); Bilirubin Direct 0.1 mg/dL (0.0-0.5); Bilirubin Total 0.3 mg/dL (0.0-1.0); Blood Urea Nitrogen 11 mg/dL (9-16); Calcium 8.6 mg/dL (8.4-10.2); Carbon Dioxide 26 mmol/L (22-29); Chloride 106 mmol/L (96-108); Cholesterol 147 mg/dL (<200); Estimated Glomerular Filt Rate > 60; Free T4 (Free Thyroxine) 0.87 ng/dL (0.71-1.85); Glucose Random 88 mg/dL (60-115); HDL Cholesterol 57 mg/dL (>40); LDL Cholesterol Calculated 80 mg/dL (<100); Potassium 4.1 mmol/L (3.3-5.1); Sodium 138 mmol/L (135-145); Thyroid Stimulating Hormone 0.87 uIU/mL (0.32-4.0); Total Protein 6.4 g/dL (6.5-8.0); Triglycerides 50 mg/dL (<150); Vitamin D 25-OH Total 15.7 ng/mL (>30)
[2023-12-18 14:48] LABS: CT PCR NOT DETECTED (Not Detect.); NG PCR NOT DETECTED (Not Detect.)
[2023-12-21 03:33] LABS: Hepatitis A Antibody IgG Nonreactive (Nonreactive); ~Hepatitis A Antibody IgG 0.45 S/CO (0.00-0.99)
[2023-12-21 04:16] LABS: HBS Num1 54.09 mIU/mL (0-7.99); HBsAGNum1 0.35 S/CO (0.00-0.99); HIV AB/AG Nonreactive (Nonreactive); HIV Num 1 0.06 S/CO (0.00-0.99); Hepatitis B Core Antibody Nonreactive (Nonreactive); Hepatitis B Surface Antigen Negative (Negative); ~HepC Num1 0.11 S/CO (0.00-0.79); ~Hepatitis B Surface Antibody REACTIVE (Nonreactive); ~Hepatitis C Antibody Nonreactive (Nonreactive)
[2023-12-21 10:39] LABS: RPR Rapid Plasma Reagin NON-REACTIVE (NON-REACTIVE)
== END 2023-12-18 11:43 | disposition home or self-care (01) ==
LOC: HO.HHCL 11:42
PROVIDERS: Visit Provider Family Medicine
DX: Z00.00 Encounter for general adult medical examination without abnormal findings (principal); F39 Unspecified mood [affective] disorder; F17.200 Nicotine dependence, unspecified, uncomplicated
CPT/HCPCS: 0353U; 36415; 80048; 80061; 80076; 82306; 83036; 84439; 84443; 85027; 86592; 86704; 86706; 86708; 86803; 87340; 87389

== ENCOUNTER 2024-02-25 10:52 | Emergency (ER) | payer MEDICAID, SELFPAY ==
[2024-02-25 11:03] VITALS: BP 122/68; PULSE 68; RESP 16; TEMP 36.6; O2SAT 96; BMI 19.6
--- NOTE | 2024-02-25 11:07 | ECG_ITS ---
Test Reason : jaw pain Blood Pressure : / mmHG Vent. Rate : 058 BPM Atrial Rate : 058 BPM P-R Int : 116 ms QRS Dur : 074 ms QT Int : 418 ms P-R-T Axes : 060 079 068 degrees QTc Int : 410 ms Sinus bradycardia Otherwise normal ECG No previous ECGs available Referred By: Greta Cooper Electronically Signed By:GEORGE HUGGINS
--- NOTE | 2024-02-25 11:08 | ED.GENADULT ---
HPI - General Adult General Chief complaint: Dental/Oral Stated complaint: jaw pain Time Seen by Provider: 02/25/24 11:22 Source: patient Mode of arrival: ambulatory Limitations: no limitations History of Present Illness ED Provider: Cameron Patterson PA-C HPI narrative: 38-year-old female presents to the ER for evaluation of right-sided jaw pain that started 2.5 days ago. It is associated with a right posterior broken tooth that she is supposed to get removed but she has had anxiety about the dentist since she had a difficulty extraction in the past. She denies any swelling in her face just pain in the right lower molar that extends to the ear and jaw. No radiation to the neck. No chest pain or SOB. No fevers. No difficulty opening or closing the jaw. She has pain with eating. She took 800 mg ibuprofen at 5am after she had a hard time sleeping all night due to the pain. MD complaint: right sided jaw and tooth pain Onset (ago): day(s) Location: face and mouth Severity: severe Severity scale (1-10): 10 Quality: aching, sharp and constant Pain Consistency: constant Relieving factors: none Exacerbating factors: eating Associated symptoms: loss of appetite Treatments prior to arrival: NSAID Related Data Previous Rx's ?Medication ?Instructions ?Recorded oxycodone-acetaminophen 5 mg-325 1 tab PO Q6H PRN pain 3 days #12 04/05/20 mg tablet (Percocet) tabs penicillin V potassium 500 mg 500 mg PO QID 7 days #28 tabs 04/05/20 tablet oxycodone-acetaminophen 5 mg-325 1 tab PO Q8H PRN Acute pain 3 days 04/06/20 mg tablet (Percocet) #10 tabs acetaminophen 300 mg-codeine 30 mg 1 tab PO Q8H PRN pain 3 days #9 04/22/20 tablet tabs ondansetron 4 mg disintegrating 4 mg PO Q6-8H PRN nausea and 10/10/20 tablet vomiting #7 tabs acetaminophen 325 mg tablet 650 mg (2 x 325 mg) PO Q4H PRN 05/30/22 (Tylenol) pain #20 tabs ibuprofen 400 mg tablet 400 mg PO Q6H PRN pain #20 tabs 05/30/22 cyclobenzaprine 5 mg tablet 10 mg (2 x 5 mg) PO TID PRN muscle 12/10/22 spasm #14 tabs ibuprofen 600 mg tablet 600 mg PO Q6H PRN pain #45 tabs 12/10/22 amoxicillin 875 mg-potassium 1 tab PO BID #14 tabs 02/25/24 clavulanate 125 mg tablet ibuprofen 600 mg tablet 600 mg PO Q8H PRN pain #14 tabs 02/25/24 oxycodone 5 mg tablet 5 mg PO Q6H PRN severe pain (scale 02/25/24 score 7-10) #9 tabs Allergies Allergy/AdvReac Type Severity Reaction Status Date / Time No Known Allergies Allergy Verified 02/25/24 11:05 Review of Systems Review of Systems: Yes all other systems are reviewed and are negative [facility] Past Medical History Medical History No known health problems Social History Social History Alcohol intake: never Patient Tobacco Use Status: Current someday Tobacco user Advance Directives: No Advance Directives Information Provided: No Physical Exam ED Vital Signs: Vital Signs - 24 hr 02/25/24 11:03 Temperature 97.8 F Pulse Rate 68 Respiratory Rate 16 Blood Pressure 122/68 Pulse Oximetry 96 Oxygen Delivery Method Room Air BMI result Body Mass Index 19.6 Appearance: Alert. Oriented X3. No acute distress. HEENT: normal external inspection. no facial swelling. poor dentition with multiple missing teeth. right posterior molar is broken in half with exposed dentin. associated gingiva and tooth itself are tender without associated swelling or fluctuacne. jaw is normal to inspection with swelling. no trismus. Neck: normal inspection, no swelling, supple CVS: Normal heart rate and rhythm. Pulses normal. Respiratory: No respiratory distress. Skin: Skin warm and dry. Normal skin color. Normal skin turgor. No rashes. Extremities:normal inspection x4, no joint swelling. Neuro: Oriented X 3. grossly normal, nonfocal Course Course Course Narrative: This is a Rapid Medical Examination (RME) performed by Ferny Cooper PA-C in triage. Full HPI, ROS, assessment and treatment plan per primary provider in the Main ED. 38 yo female here for eval of right sided jaw pain on waking this morning. admits to poor dentition w/ broken teeth. saw her dentist and was referred to oral surgeon for removal. today she states her teeth do not hurt and that the pain is only in her jaw. denies cp or SOB. admits to anxiety surrounding the pain. took motrin at 0500 this morning w/o relief. PE: poor dentition w/ multiple broken teeth. no obvious abscess. no anterior neck swelling. rrr. lungs clear. Plan: ekg, trop, labs Medical Decision Making Medical Decision Making [facility] Narrative: 38-year-old female presents to the ER for evaluation of right lower dental pain and jaw pain that started 2 and half days ago. She has history of pain in this molar in the past with a fractured tooth with exposed dentin. She has also get it extracted but is too nervous to do so as she has had a traumatic experience with the dentist in the past. Patient does not have any associated pain in the neck, chest or is having any shortness of breath. She has no trismus on examination. Lab work done shows no leukocytosis. She has a nonischemic troponin. Her EKG did show some peaked T-waves however potassium is normal. No ischemic changes. Doubt any cardiac cause of her jaw pain. She needs to get this tooth extracted. There is no evidence of drainable abscess today. Will start her on empiric antibiotics, pain control and she will call her dentist today. Comfortable discharge home with dental follow-up. Differential Diagnosis Differential Diagnoses: The differential diagnosis associated with the presentation includes fractured tooth, dental abscess, dental caries, low clinical suspicion for cardiac cause of jaw pain Lab Data [facility] Lab Attestation statement: I reviewed the patient's lab results. No leukocytosis, mild normocytic anemia 02/25/24 11:17 02/25/24 11:17 Labs: Lab Results 02/25/24 Range/Units 11:17 WBC 8.3 (4.8-10.8) X10*3/uL RBC 3.98 L (4.20-5.50) X10*6/uL Hgb 11.4 L (12.0-16.0) g/dl Hct 34.6 L (37.0-47.0) % MCV 86.9 (80.0-98.0) fL MCH 28.6 (27.0-33.0) pg MCHC 32.9 (31.0-35.0) g/dl RDW 13.7 (11.0-16.0) % Plt Count 249 (160-400) X10*3/uL MPV 10.4 (9.4-12.3) fL Immature Gran % (Auto) 0.2 (0.0-0.4) % Neut % (Auto) 64.3 (45-73) % Lymph % (Auto) 27.1 (20-40) % Bradley % (Auto) 6.4 (2-11) % Eos % (Auto) 1.6 (0-4) % Baso % (Auto) 0.4 (0-2) % Lymph # (Auto) 2.3 (1.2-4.9) X10*3/uL Bradley # (Auto) 0.5 (0.1-1.2) X10*3/uL Eos # (Auto) 0.1 (0.0-0.4) X10*3/uL Baso # (Auto) 0.0 (0.0-0.2) X10*3/uL Abs Immat Gran (auto) 0.02 (0.00-0.03) X10*3/uL Absolute Neuts (auto) 5.3 (2.0-8.3) x10*3/uL Absolute Nucleated RBC 0.000 (0.0-0.012) X10*3/uL Nucleated RBC % (auto) 0.0 (0.0-0.2) /100WBC Sodium 139 (135-145) mmol/L Potassium 3.8 (3.3-5.1) mmol/L Chloride 110 H (96-108) mmol/L Carbon Dioxide 23 (22-29) mmol/L Anion Gap 10 L (12-20) BUN 7 L (9-16) mg/dL Creatinine 0.70 (0.5-1.4) mg/dL Estim Creat Clear Calc 88.9 Estimated GFR > 60 Random Glucose 92 (60-115) mg/dL Calcium 8.7 (8.4-10.2) mg/dL Magnesium 1.9 (1.6-2.6) mg/dL Total Bilirubin 0.6 (0.0-1.0) mg/dL AST 12 (5-31) U/L ALT 13 (0-31) U/L Alkaline Phosphatase 64 (39-117) U/L Troponin I High Sens 11.2 (<3.5-17.0) ng/L B-Natriuretic Peptide 65 (<100) pg/mL Total Protein 6.2 L (6.5-8.0) g/dL Albumin 3.7 (3.5-5.0) g/dL Independent Interpretation I performed an independent interpretation of an: EKG Interpretation: EKG with sinus bradycardia, ventricular rate 58 beats per minute, normal IA interval, peaked T-waves present in leads 2, 3, V3 through V6 without any ST segment elevations or depressions. External Record Review External record reviewed: Outpatient record, Prior outpatient labs and Prior outpatient radiology Prescription Management I considered prescription management with: Pain Medication and Antibiotic Chronic Conditions Patient?s care impacted by: Other (Poor dentition, poor dental care) Social Determinants Patient?s care significantly limited by Social Determinants of Health including: Other Social Determinant of Health Critical Care Time Critical Care Time Critical Care Time: No Discharge Plan Discharge Clinical Impression: Fracture of tooth Patient Disposition: Home, Self-Care Instructions: Toothache (ED), Tooth Extraction (DC) Additional Instructions: Take the prescribed antibiotics as directed, complete the entire course and do not miss any doses Take the prescribed oxycodone as needed for severe pain only. Do not drive after taking this medication. Recommend around the clock ibuprofen every [id number] hours, take this with food. Avoid food that is very hot or very cold, this will aggravate the pain in your tooth. Follow-up with your dentist as soon as possible. If you are unable to get in with your dentist, call 1 of the urgent dentist in the list below. If you develop new or worsening symptoms call 911 or come back to the ER for further evaluation. Call or visit any of the clinics below to establish with a dentist: [facility] [address] [place] [address] [facility] [address] [place] [address] [facility] [address] [facility], [address] [address] [place] [address] [facility] [address] [address] [facility] [address] [place], [place] [id number] [place] [address] [place], [place] [id number] Prescriptions: New oxycodone 5 mg tablet 5 mg PO Q6H PRN (Reason: severe pain (scale score 7-10)) Qty: 9 0RF Rx Instructions: Partial Fill upon patient request. ibuprofen 600 mg tablet 600 mg PO Q8H PRN (Reason: pain) Qty: 14 0RF amoxicillin-pot clavulanate 875-125 mg tablet 1 tab PO BID Qty: 14 0RF No Action oxycodone-acetaminophen [Percocet] 5-325 mg tablet 1 tab PO Q6H PRN (Reason: pain) 3 Days Qty: 12 0RF penicillin V potassium 500 mg tablet 500 mg PO QID 7 Days Qty: 28 0RF oxycodone-acetaminophen [Percocet] 5-325 mg tablet 1 tab PO Q8H PRN (Reason: Acute pain) 3 Days Qty: 10 0RF ondansetron 4 mg tablet,disintegrating 4 mg PO Q6-8H PRN (Reason: nausea and vomiting) Qty: 7 0RF acetaminophen-codeine 300-30 mg tablet 1 tab PO Q8H PRN (Reason: pain) 3 Days Qty: 9 0RF ibuprofen 400 mg tablet 400 mg PO Q6H PRN (Reason: pain) Qty: 20 0RF acetaminophen [Tylenol] 325 mg tablet 650 mg PO Q4H PRN (Reason: pain) Qty: 20 0RF ibuprofen 600 mg tablet 600 mg PO Q6H PRN (Reason: pain) Qty: 45 0RF cyclobenzaprine 5 mg tablet 10 mg PO TID PRN (Reason: muscle spasm) Qty: 14 0RF Print Language: Paraguayan
[2024-02-25 11:22] LABS: MANUAL DIFF FLAG NO
[2024-02-25 11:35] LABS: Basophils Percent Auto 0.4 % (0-2); Eosinophils Absolute Auto 0.1 X10*3/uL (0.0-0.4); Eosinophils Percent Auto 1.6 % (0-4); Hematocrit 34.6 % (37.0-47.0); Hemoglobin 11.4 g/dl (12.0-16.0); Imm Gran Abs Auto 0.02 X10*3/uL (0.00-0.03); Imm Gran Pct Auto 0.2 % (0.0-0.4); Lymphocytes Absolute Auto 2.3 X10*3/uL (1.2-4.9); Lymphocytes Percent Auto 27.1 % (20-40); Mean Corpuscular HGB Conc 32.9 g/dl (31.0-35.0); Mean Corpuscular Hemoglobin 28.6 pg (27.0-33.0); Mean Corpuscular Volume 86.9 fL (80.0-98.0); Mean Platelet Volume 10.4 fL (9.4-12.3); Monocytes Absolute Auto 0.5 X10*3/uL (0.1-1.2); Monocytes Percent Auto 6.4 % (2-11); Neutrophils Absolute Auto 5.3 x10*3/uL (2.0-8.3); Neutrophils Percent Auto 64.3 % (45-73); Platelet Count 249 X10*3/uL (160-400); Red Blood Count 3.98 X10*6/uL (4.20-5.50); Red Cell Distribution Width 13.7 % (11.0-16.0); White Blood Count 8.3 X10*3/uL (4.8-10.8)
[2024-02-25 11:38] LABS: Magnesium 1.9 mg/dL (1.6-2.6)
[2024-02-25 11:45] LABS: B Type Natriuretic Peptide 65 pg/mL (<100)
[2024-02-25 11:46] LABS: Troponin-I High Sensitivity 11.2 ng/L (<3.5-17.0)
[2024-02-25 12:28] LABS: Alanine Aminotransferase 13 U/L (0-31); Albumin Level 3.7 g/dL (3.5-5.0); Alkaline Phosphatase 64 U/L (39-117); Anion Gap 10 (12-20); Aspartate Amino Transferase 12 U/L (5-31); Bilirubin Total 0.6 mg/dL (0.0-1.0); Blood Urea Nitrogen 7 mg/dL (9-16); Calcium 8.7 mg/dL (8.4-10.2); Carbon Dioxide 23 mmol/L (22-29); Chloride 110 mmol/L (96-108); Creatinine Clr Calc Pharmacy 88.9; Estimated Glomerular Filt Rate > 60; Glucose Random 92 mg/dL (60-115); Potassium 3.8 mmol/L (3.3-5.1); Sodium 139 mmol/L (135-145); Total Protein 6.2 g/dL (6.5-8.0)
[2024-02-25] MEDS: Acetaminophen 325 MG TABLET 975 MG PO (13:05)
[2024-02-25] MEDS: oxyCODONE HCl Immed Release 5 MG TABLET PO (13:05)
[2024-02-25 13:10] VITALS: BP 122/68; PULSE 68; RESP 16; TEMP 36.6; O2SAT 96
== END 2024-02-25 13:11 | disposition home or self-care (01) ==
PROVIDERS: Physician Assistant; Physician Assistant Medical; Emergency Provider Emergency Medicine; PCP Family Medicine
DX: K08.531 Fractured dental restorative material with loss of material (principal); R68.84 Jaw pain; K08.89 Other specified disorders of teeth and supporting structures; F17.210 Nicotine dependence, cigarettes, uncomplicated
CPT/HCPCS: 36415; 80053; 83735; 83880; 84484; 85025; 93005; 99283; 99284